=== PATIENT | male | born 1965 | race Caucasian/White ===

== ENCOUNTER 2018-07-14 09:17 | Day surgery (SDC) | payer OTHER ==
[~2018-07-14] VITALS: Ht 152.4 cm; Wt 116.6 kg
--- NOTE | ~2018-07-14 | OP ---
PATIENT NAME: JACK SAUER MEDICAL RECORD: [id number] :69 [facility]: SURGEON: CARMELITA JIMÉNEZ DO DATE OF OPERATION: 07/14/2018 PROCEDURE: Colonoscopy with polypectomy. INDICATIONS FOR PROCEDURE: Screening for colorectal cancer. SCOPE: Olympus video pediatric colonoscope. MEDICATIONS: Propofol 480 mg IV per anesthesia. WITHDRAWAL TIME: 14 minutes. ESTIMATED BLOOD LOSS: Minimal. COMPLICATIONS: None. FINDINGS: Informed consent was given. The patient was made comfortable with the above medication. After reaching an adequate level of sedation by slow IV push, the patient was placed on his left side. A digital rectal examination was performed and was normal. The endoscope was then advanced under direct visualization through the rectum to the cecum and terminal ileum. The endoscope was slowly withdrawn and mucosa was carefully examined. The prep quality was excellent. There were 4 polyps visualized on today's examination. The first was located in the sigmoid colon. It was benign appearing sessile polyp, which measured approximately 2-3 mm in diameter. These were removed using hot forceps in 1 piece and completely retrieved. The other 3 polyps were located in the rectum. They were benign appearing sessile polyps, which ranged in size from 3 mm-7 mm in diameter. They were all removed using hot snare in 1 piece and completely retrieved. Retroflexion was performed in the rectum with visualization of grade I internal hemorrhoids without active bleeding. The endoscope was then withdrawn from the patient. The patient tolerated the procedure well and there were no complications. IMPRESSION: 1. Four polyps as described above, removed using a combination of hot forceps and hot snare. 2. Grade I internal hemorrhoids without bleeding. PLAN AND RECOMMENDATIONS: 1. Discharge home when recovery parameters are met. 2. Follow up biopsy specimen results. 3. High fiber diet. 4. Continue current medications. 5. Recall colonoscopy in 3-5 years for ongoing surveillance of a personal history of polyps. TRANSINT:[id number] Voice Confirmation ID: [id number] DOCUMENT ID: [id number] OPERATIVE REPORT [id number] JACK SAUER CARMELITA JIMÉNEZ DO at 0732 CC: [id number] DICTATION DATE: 07/14/18 1134 [place] INVESTIGATOR: 07/14/18 1229 [facility] 07/14/18 [place] [id number] [facility] [place] [address]
[2018-07-14 09:46] LABS: HEMATOCRIT 53.3 % (42.0-54.0); HEMOGLOBIN 19.2 g/dL (13.5-17.5); MCH 31.6 pg (26.0-34.0); MCV 87.8 fL (80.0-100.0); MEAN PLATELET VOLUME 9.9 fL (7.4-10.4); RBC 6.07 10x6/uL (4.20-6.10); RDW 12.7 % (11.5-14.5)
[2018-07-14] MEDS ORDERED: TOPROL XL50 MG PO (10:05)
[2018-07-14] MEDS ORDERED: JANUMET XR 50-1 EACH PO (10:06)
[2018-07-14] MEDS ORDERED: GLUCOTROL XL 1010 MG PO (10:06)
[2018-07-14] MEDS ORDERED: LISINOPRIL5 MG PO (10:06)
[2018-07-14] MEDS ORDERED: PRAVASTATIN SOD10 MG PO (10:06)
[2018-07-14 10:18] VITALS: BP 147/84; Ht 152.4 cm; Wt 116.6 kg
[2018-07-14 10:22] LABS: ANION GAP 19.1 mmol/L (8-16); CARBON DIOXIDE 21.9 mmol/L (21.0-32.0); CREATININE - SERUM 1.4 mg/dL (0.6-1.3)
== END 2018-07-14 12:20 | disposition home or self-care (01) ==
LOC: D.OPS 09:17
PROVIDERS: Anesthesiology
DX: D12.5 Benign neoplasm of sigmoid colon (principal); K62.1 Rectal polyp; K64.0 First degree hemorrhoids